=== PATIENT | female | born 1955 | race Caucasian/White ===

== ENCOUNTER 2020-01-15 13:27 | Emergency (ER) | payer MEDICARE, MEDICAID ==
[~2020-01-15] VITALS: Ht 157.5 cm; Wt 75.0 kg
[~2020-01-15 13:27] MED LIST: ACETTAB3 OR; ALBUTEROL S2.5 MG/.5 IN; ALBUTEROL2.5 MG/3 M IN; ALLEGRA-D12 HOUR OR; AMOXICILLIN500 MG OR; ASPIRIN325 M1 OR; ASPIRIN325 MG OR; ATIVAN0.5 MG PO; AZITHROMYCIN500 MG PO; BAYER ADVANCED325 MG; CALAN SR240 MG OR; CALCIUM MAGNESIUM & PO; CELEXA20 MG OR; CLARITIN10 M1 PO; DOXYCYCL HYC100 MG PO; DUONEB IN; EMBEDA 20-0.8 M1 CAP; FIORICET OR; FLEXERIL PO; FLONASE0.05 %; ISOSORB DIN10 MG OR; K-TAB20 MEQ; LORTAB 5 OR; LORTAB5 OR; LYRICA75 MG PO; MEDDOSEPAK OR; MELOXICAM15 MG PO; MULTIVITAMIN PO; MYSOLINE250 M1 PO; MYSOLINE250 MG OR; NAPROSYN500 MG OR; NEXIUM20 M1 OR; OXYCODO-APAP1 TA2 PO; PAXIL CR37.5 MG OR; PERCOCET 5/325M1 TAB OR; PREDNISONE10 MG PO; PREDNISONE5 MG OR; PROTONIX40 M2 PO; PROVENTIL IN; PULMICORT200 MCG IN; SINGULAIR PO; SYMBICORT1 AE1 IN; TESSALON PER100 MG OR; THEOCHRON PO; TRAMADL/APAP OR; TRAZODONE150 MG OR; ULTRAM50 MG OR; VITAMIN C500 M6 PO; ZANAFLEX4 MG OR; ZOFRAN8 MG PO; [UNRECOGNIZED DRUG - OTHER]; [UNRECOGNIZED DRUG - OTHER] OR
[2020-01-15] MEDS ORDERED: PANTOPRAZOLE SO40 M1 PO (13:56)
[2020-01-15] MEDS ORDERED: MYSOLINE50 M2 PO (13:57)
[2020-01-15] MEDS ORDERED: EFFEXOR XR150 MG PO (13:57)
[2020-01-15] MEDS ORDERED: ASPIRIN81 MG PO (13:58)
[2020-01-15] MEDS ORDERED: IBUPROFEN200 MG PO (14:19)
[2020-01-15 15:35] VITALS: BP 98/53
== END 2020-01-15 15:35 | disposition home or self-care (01) ==
LOC: ED 13:27
DX: M54.6 Pain in thoracic spine (principal); M25.511 Pain in right shoulder; G89.29 Other chronic pain; R91.8 Other nonspecific abnormal finding of lung field; M79.7 Fibromyalgia; J44.9 Chronic obstructive pulmonary disease, unspecified; M19.90 Unspecified osteoarthritis, unspecified site; F17.210 Nicotine dependence, cigarettes, uncomplicated; W01.0XXA Fall on same level from slipping, tripping and stumbling without subsequent striking against object, initial encounter; Y92.009 Unspecified place in unspecified non-institutional (private) residence as the place of occurrence of the external cause; Z85.118 Personal history of other malignant neoplasm of bronchus and lung; Z92.21 Personal history of antineoplastic chemotherapy; Z92.3 Personal history of irradiation